=== PATIENT | female | born 1995 | race Caucasian/White ===

== ENCOUNTER → 2017-01-30 | Outpatient (CLI) | payer OTHER ==
[~2017-01-30] MED LIST: COLACE100 MG PO; FERROUS SULFAT325 MG PO; IBUPROFEN600 MG PO; SUBUTEX 8 MG TAB8 MG SL
[2017-01-30 18:08] LABS: HEMOGLOBIN 12.1 gm/dl (12.3-15.3); RED BLOOD COUNT 4.41 M/UL (4.00-5.10); WHITE BLOOD COUNT 6.5 K/UL (4.5-11.0)
[2017-01-30 18:30] LABS: BUN/CREATININE RATIO 17 (0-10)
== END ==
LOC: LAB 16:51
PROVIDERS: Internal Medicine
DX: Z11.59 Encounter for screening for other viral diseases (principal); F11.20 Opioid dependence, uncomplicated; Z20.5 Contact with and (suspected) exposure to viral hepatitis; Z72.89 Other problems related to lifestyle
CPT/HCPCS: 36415; 80053; 80074; 85027; 87390